=== PATIENT | male | born 1980 | race Caucasian/White ===

== ENCOUNTER → 2016-06-03 | Outpatient (CLI) | payer OTHER ==
[~2016-06-03] MED LIST: AMOX875T2 PO; LANS30CA14 PO; METH4TAB27 PO; PHEN-452 PO
[2016-06-04 10:49] VITALS: BP 126/82
--- NOTE | 2016-06-04 10:49 | Urgent Care T Sheet Gen (E) ---
Intake General Temperature (Fahrenheit): 100.5 Pulse: 128 Blood Pressure Systolic: 126 Blood Pressure Diastolic: 82 Respirations: 20 SPO2: 97 Description of Symptoms patient presents with illness since yesterday. Notes ST, SANCHEZ, body aches and fever. was recently treated for strep. Patient states the ibuprofen helps to take the edge off however once the med wears off, his symptoms return. History of Present Illness Allergies: Coded Allergies: Penicillins (Verified Allergy, Unknown, tolerated cefoxitin., 09/26/13) Patient and family do not remember this allergy. Sulfa (Sulfonamide Antibiotics) (Verified Allergy, Unknown, 09/26/13) Home Meds Active Scripts Methylprednisolone (Medrol Dosepack)21 Tab/Pkt [id number] Tab PO as directed Inflammation #1 PKT Ref 0 Prov:IRENE DUKES APRN () 04/17/16 Amoxicillin 875 Mg [id number] Mg PO BID #20 TAB Ref 0 Prov:IRENE DUKES APRN () 04/17/16 Reported Medications Phentermine HCl 30 Mg [id number] Mg PO DAILY 02/21/12 Lansoprazole (Prevacid)30 Mg Capsule.dr30 Mg PO daily 01/09/12 Respiratory Constitutional Symptoms: Chills Fever Malaise EENTM: Throat pain Respiratory: No symptoms reported Cardiovascular: No symptoms reported Neurological: Headache All Other Systems Reviewed Remaining Systems: All other systems reviewed with negative findings Past Tcilepb-Emeagy-Zsolec Hx Patient's Social History Alcohol Use: Denies Use Surgeries/Hospitalizations Hospitalization/Surgery Hx: NA HAS NEVER HAD SURGERY Respiratory Respiratory History: None Cardiovascular Cardiovascular History: None Neuro/Muscular Neuro/Muscular History: Migraine Reproductive System Sexually Transmitted Diseases: No Genitouinary Genitourinary History: None Gastrointestinal GI/Endocrine History: None Diabetes Diabetes: No HEENT Impaired Vision: None Hearing Impaired: None Integumentary Integumentary History: None Cancer History of Cancer?: No Psychosocial Behavior Disorders: None Physical Exam Physical Exam General Appearance: WD/WN No apparent distress (patient is lying down. appears ill.) Eyes, Ears, Nose, Throat Ex: TMs normal Pharyngeal erythema Tonsillar exudate Other (nose is clear) Neck Exam: Supple Lymphadenopathy (anterior cervical) Respiratory Exam: Lungs clear Normal breath sounds Cardiovascular Exam: Regular rate, rhythm Progress/Orders Lab Results Labs Results: Rapid Strep (positive) Departure Urgent Care Impression Impression: Primary Impression: Strep pharyngitis Departure Disposition: 01 HOME OR SELF-CARE Condition: Stable Referrals: GERI BAUGH MD (PCP) Additional Instructions: rapid strep was positive. I have started him on Omnicef for infection I have also prescribed Prednisone x 3 days for swelling and inflammation No NSAIDs while on steroid Rest. Fluids Return as needed Patient understands DC instructions. All questions were answered. End of report . GEOFFREY RODRÍGUEZ Jun 04, 2016 10:49
== END ==
LOC: MHUC 17:21
PROVIDERS: ATTEND Physician Assistant
DX: J02.0 Streptococcal pharyngitis (principal)
CPT/HCPCS: 87880; 99213